=== PATIENT | female | born 1950 | race African-American/Black ===

== ENCOUNTER 2021-01-27 12:30 | Inpatient (IN) | payer OTHER ==
[~2021-01-27] VITALS: Ht 162.6 cm; Wt 76.4 kg
[2021-01-27 14:36] LABS: BASOPHILS % 0.9 % (0.0-2.0); EOSINOPHILS % 1.8 % (0.0-5.0); HEMATOCRIT. 25.7 % (36.0-48.0); HEMOGLOBIN. 8.3 g/dL (12.0-16.0); LYMPHOCYTES % 19.4 % (20.0-50.0); MEAN CORPUSCULAR HEMOGLOBIN 33.7 pg (28.0-32.0); MEAN CORPUSCULAR VOLUME 104.1 fL (81.0-99.0); MEAN PLATELET VOLUME 9.1 fl (7.4-10.4); MONOCYTES % 11.5 % (2.0-8.0); NEUTROPHILS % 66.4 % (40.0-76.0); PLATELET 149 x1000/uL (130-400); RED BLOOD CELL COUNT 2.47 mill/uL (4.2-5.4); RED CELL DISTRIBUTION WIDTH 14.4 % (11.6-14.6)
[2021-01-27 14:41] LABS: CHLORIDE 115 mEq/L (98-107)
[2021-01-27] MEDS ORDERED: ASPIRIN 81MG TABLET PO ONE (15:45)
[2021-01-27] MEDS ORDERED: NITROGLYCERIN OINT 1GM/INCH UDPKT TD ONE (15:45)
[2021-01-27] MEDS: NITROGLYCERIN 0.4MG TABLET SL SL PRN ×2 (16:25→20:12)
[2021-01-27] MEDS ORDERED: HYDRALAZINE HCL 100MG TABLET PO ONE (17:00)
[2021-01-27] MEDS ORDERED: HYDRALAZINE 20MG/ML VIAL IV ONE (20:30)
[2021-01-27] MEDS ORDERED: LABETALOL 5MG/ML SYR 20 MG/4 ML SYRINGE IV ONE (23:15)
[2021-01-28] MEDS ORDERED: ACETAMINOPHEN 325MG TABLET PO PRN ×2 (01:15)
[2021-01-28] MEDS ORDERED: ZOLPIDEM TARTRATE 5MG TABLET PO PRN (01:15)
[2021-01-28] MEDS ORDERED: DIPHENHYDRAMINE 50MG/ML VIAL IV PRN (01:15)
[2021-01-28] MEDS ORDERED: ONDANSETRON HCL 4MG/2ML INJ IV PRN (01:15)
[2021-01-28] MEDS ORDERED: MAGNESIUM/ALUMINUM HYDROXIDE/SIMETHICONE 30ML UDC PO PRN (01:15)
[2021-01-28] MEDS: HYDRALAZINE 20MG/ML VIAL IV PRN ×3 (04:13→17:19)
[2021-01-28] MEDS: CLONIDINE 0.1MG TABLET PO PRN ×3 (04:32→17:18)
[2021-01-28] MEDS ORDERED: MORPHINE SULFATE 2 MG/ML CPJ (NOT FOR IM USE) IV PRN (05:00)
[2021-01-28] MEDS ORDERED: HYDRALAZINE HCL 100MG TABLET PO SCH (06:00)
[2021-01-28] MEDS: SODIUM CHLORIDE 0.9% INJ 3ML FLUSH IVF SCH ×3 (06:26→21:29)
[2021-01-28 06:33] VITALS: BP 204/105
[2021-01-28 06:36] VITALS: BP 204/105
[2021-01-28 08:13] VITALS: BP 225/88
[2021-01-28] MEDS: AMLODIPINE 5MG TABLET PO SCH ×2 (08:33→09:00)
[2021-01-28] MEDS ORDERED: LOSARTAN POTASSIUM 50 MG TABLET PO SCH (11:45)
[2021-01-28 12:00] VITALS: BP 211/93
[2021-01-28] MEDS ORDERED: CLOP75TA33 PO (12:40)
[2021-01-28] MEDS ORDERED: LISI10TA26 PO (12:40)
[2021-01-28] MEDS ORDERED: CLON0.3T PO (12:40)
[2021-01-28] MEDS ORDERED: LATA2.5D14 LEFTEYE (12:40)
[2021-01-28] MEDS ORDERED: CETI10CA11 PO (12:40)
[2021-01-28] MEDS ORDERED: OMEP20CA14 PO (12:40)
[2021-01-28] MEDS ORDERED: NIFE90TA60 PO (12:40)
[2021-01-28] MEDS ORDERED: TERA5CAP4 PO (12:40)
[2021-01-28] MEDS ORDERED: LABE200T9 PO (12:40)
[2021-01-28] MEDS ORDERED: HYDR100T26 PO (12:40)
[2021-01-28] MEDS: FUROSEMIDE 40MG/4ML VIAL IVP SCH (13:20)
[2021-01-28] MEDS: CLONIDINE 0.3MG TABLET PO SCH ×2 (13:21→21:29)
[2021-01-28] MEDS: HYDRALAZINE HCL 100MG TABLET PO SCH ×3 (13:21→21:29)
[2021-01-28] MEDS: METOPROLOL TARTRATE 50MG TABLET PO SCH ×2 (13:21→21:29)
[2021-01-28 13:24] LABS: PROTHROMBIN TIME 10.7 sec (9.6-11.0)
[2021-01-28 16:00] VITALS: BP 231/107
[2021-01-28 20:00] VITALS: BP 210/79
[2021-01-28] MEDS ORDERED: NALOXONE HCL 0.4MG/ML VIAL IV PRN (20:45)
[2021-01-29] VITALS: BP 222/94
[2021-01-29] MEDS: LABETALOL HCL 300MG TABLET PO SCH ×3 (00:08→20:38)
[2021-01-29] MEDS: LISINOPRIL 10MG TABLET PO SCH ×3 (00:09→20:38)
[2021-01-29] MEDS ORDERED: CLONIDINE 0.1MG TABLET PO PRN (01:15)
[2021-01-29 04:00] VITALS: BP 223/87
[2021-01-29] MEDS: HYDRALAZINE 20MG/ML VIAL IV PRN ×3 (04:33→22:30)
[2021-01-29] MEDS: CLONIDINE 0.3MG TABLET PO SCH ×3 (05:56→22:30)
[2021-01-29] MEDS: HYDRALAZINE HCL 100MG TABLET PO SCH ×3 (05:56→22:32)
[2021-01-29] MEDS: SODIUM CHLORIDE 0.9% INJ 3ML FLUSH IVF SCH ×3 (06:23→22:30)
[2021-01-29] MEDS: OMEPRAZOLE 20MG CAPSULE EXTENDED RELEASE PO SCH ×2 (06:23→20:38)
[2021-01-29 07:32] LABS: BASOPHILS % 0.9 % (0.0-2.0); EOSINOPHILS % 2.5 % (0.0-5.0); HEMATOCRIT. 25.9 % (36.0-48.0); HEMOGLOBIN. 8.6 g/dL (12.0-16.0); LYMPHOCYTES % 22.1 % (20.0-50.0); MEAN CORPUSCULAR HEMOGLOBIN 34.6 pg (28.0-32.0); MEAN CORPUSCULAR VOLUME 103.8 fL (81.0-99.0); MEAN PLATELET VOLUME 9.3 fl (7.4-10.4); NEUTROPHILS % 62.5 % (40.0-76.0); PLATELET 184 x1000/uL (130-400); RED BLOOD CELL COUNT 2.49 mill/uL (4.2-5.4); RED CELL DISTRIBUTION WIDTH 14.6 % (11.6-14.6)
[2021-01-29 08:00] VITALS: BP 203/90
[2021-01-29] MEDS: NITROGLYCERIN OINT 1GM/INCH UDPKT TD SCH ×3 (08:57→22:30)
[2021-01-29] MEDS: FUROSEMIDE 40MG/4ML VIAL IVP SCH (08:57)
[2021-01-29] MEDS: CETIRIZINE 10MG TABLET PO SCH (08:58)
[2021-01-29] MEDS ORDERED: NIFEDIPINE XL 90MG TAB PO SCH (09:00)
[2021-01-29] MEDS: NIFEDIPINE XL 90MG TAB PO SCH ×2 (09:28→20:38)
[2021-01-29 12:00] VITALS: BP 171/66
[2021-01-29 16:00] VITALS: BP 140/59
[2021-01-29 20:00] VITALS: BP 156/52
[2021-01-29] MEDS ORDERED: ATORVASTATIN CALCIUM 10MG TABLET PO SCH (21:00)
[2021-01-29] MEDS ORDERED: TERAZOSIN HCL 5MG CAPSULE PO SCH (21:00)
[2021-01-29] MEDS ORDERED: LATANOPROST 0.005% OPHTH DROPS 2.5ML LEFTEYE SCH (21:00)
[2021-01-29] MEDS ORDERED: CLONIDINE 0.2MG TABLET PO PRN (21:25)
[2021-01-30] VITALS: BP 140/56
[2021-01-30 04:00] VITALS: BP 150/55
[2021-01-30] MEDS: OMEPRAZOLE 20MG CAPSULE EXTENDED RELEASE PO SCH (06:20)
[2021-01-30] MEDS: HYDRALAZINE HCL 100MG TABLET PO SCH ×2 (06:20→13:12)
[2021-01-30] MEDS: CLONIDINE 0.3MG TABLET PO SCH ×2 (06:20→13:13)
[2021-01-30] MEDS: NITROGLYCERIN OINT 1GM/INCH UDPKT TD SCH ×3 (06:20→12:31)
[2021-01-30] MEDS: SODIUM CHLORIDE 0.9% INJ 3ML FLUSH IVF SCH ×2 (06:21→13:13)
[2021-01-30 08:00] VITALS: BP 139/64
[2021-01-30] MEDS: CETIRIZINE 10MG TABLET PO SCH (09:07)
[2021-01-30] MEDS: NIFEDIPINE XL 90MG TAB PO SCH (09:08)
[2021-01-30] MEDS: FUROSEMIDE 40MG/4ML VIAL IVP SCH (09:08)
[2021-01-30] MEDS: LABETALOL HCL 300MG TABLET PO SCH (09:08)
[2021-01-30] MEDS: LISINOPRIL 10MG TABLET PO SCH (09:08)
[2021-01-30 12:00] VITALS: BP 164/62
[2021-01-30] MEDS: HYDRALAZINE 20MG/ML VIAL IV PRN (12:21)
[2021-01-30 12:40] VITALS: BP 167/66
== END 2021-01-30 14:10 | disposition home or self-care (01) | DRG 682 ==
LOC: ER 12:30 → EDBEDREQ 13:37 → EDBEDREQTM 15:48 → EDBEDREQ 23:26 → EDBEDREQTM 23:26 → ENRESERV 01-28 03:06 → 6WST 01-28 05:48
PROVIDERS: ADMIT Internal Medicine; ATTEND Internal Medicine
DX: N17.9 Acute kidney failure, unspecified (principal); I50.43 Acute on chronic combined systolic (congestive) and diastolic (congestive) heart failure; I13.0 Hypertensive heart and chronic kidney disease with heart failure and stage 1 through stage 4 chronic kidney disease, or unspecified chronic kidney disease; I16.1 Hypertensive emergency; I48.92 Unspecified atrial flutter; Q61.3 Polycystic kidney, unspecified; I31.3 Pericardial effusion (noninflammatory); I48.0 Paroxysmal atrial fibrillation; N18.9 Chronic kidney disease, unspecified; D64.9 Anemia, unspecified; E78.5 Hyperlipidemia, unspecified; Z96.653 Presence of artificial knee joint, bilateral; Z20.822 Contact with and (suspected) exposure to COVID-19; Z86.73 Personal history of transient ischemic attack (TIA), and cerebral infarction without residual deficits
CPT/HCPCS: 36415; 71045; 80048; 80053; 80061; 83735; 83880; 84484; 85025; 87426; 93005; 93306; 99291; J0360; J1940; J3490

== ENCOUNTER 2021-04-27 23:01 | Inpatient (IN) | payer OTHER ==
[~2021-04-27] VITALS: Ht 162.6 cm; Wt 72.1 kg
[~2021-04-27 23:01] MED LIST: CETI10CA11 PO; CLON0.3T PO; CLOP75TA33 PO; HYDR100T26 PO; LABE200T9 PO; LATA2.5D14 LEFTEYE; LISI10TA26 PO; NIFE90TA60 PO; OMEP20CA14 PO; TERA5CAP4 PO
[2021-04-27] MEDS ORDERED: ASPIRIN 81MG TABLET PO ONE (23:15)
[2021-04-27] MEDS ORDERED: LABETALOL HCL VIAL 20 MG/4 ML VIAL IV ONE (23:15)
[2021-04-27 23:42] LABS: BASOPHILS % 1.4 % (0.0-2.0); HEMATOCRIT. 25.1 % (36.0-48.0); HEMOGLOBIN. 8.5 g/dL (12.0-16.0); MEAN CORPUSCULAR HEMOGLOBIN 33.7 pg (28.0-32.0); MEAN CORPUSCULAR VOLUME 99.6 fL (81.0-99.0); MEAN PLATELET VOLUME 8.6 fl (7.4-10.4); MONOCYTES % 12.1 % (2.0-8.0); NEUTROPHILS % 69.5 % (40.0-76.0); PLATELET 151 x1000/uL (130-400); RED BLOOD CELL COUNT 2.52 mill/uL (4.2-5.4); RED CELL DISTRIBUTION WIDTH 13.5 % (11.6-14.6)
[2021-04-27 23:46] LABS: CHLORIDE 109 mEq/L (98-107)
[2021-04-28] VITALS (61 sets, daily range): BP systolic 111–193; BP diastolic 56–102
[2021-04-28] MEDS ORDERED: FUROSEMIDE 40MG/4ML VIAL IVP NR (00:30)
[2021-04-28] MEDS ORDERED: LABETALOL HCL VIAL 20 MG/4 ML VIAL IV ONE (02:00)
[2021-04-28] MEDS ORDERED: NICARDIPINE 40MG/200ML PREMIX 200 ML IV NR (02:30)
[2021-04-28] MEDS ORDERED: LABETALOL HCL 200MG TABLET PO SCH (07:00)
[2021-04-28] MEDS ORDERED: NICARDIPINE 40MG/200ML PREMIX 200 ML IV PRN (07:30)
[2021-04-28] MEDS: NIFEDIPINE XL 90MG TAB PO SCH (08:34)
[2021-04-28] MEDS: CETIRIZINE 10MG TABLET PO SCH (08:35)
[2021-04-28] MEDS: CLOPIDOGREL 75MG TABLET PO SCH (08:35)
[2021-04-28] MEDS: OMEPRAZOLE 20MG CAPSULE EXTENDED RELEASE PO SCH (08:35)
[2021-04-28] MEDS: LABETALOL HCL 100MG TABLET PO SCH ×3 (08:36→21:51)
[2021-04-28] MEDS ORDERED: LISINOPRIL 10MG TABLET PO SCH (09:00)
[2021-04-28] MEDS: NICARDIPINE 50 MG in SODIUM CHLORIDE 0.9% 250 ML IV PRN (09:14)
[2021-04-28 09:44] LABS: BASOPHILS % 1.2 % (0.0-2.0); EOSINOPHILS % 2.5 % (0.0-5.0); HEMATOCRIT. 28.1 % (36.0-48.0); HEMOGLOBIN. 9.5 g/dL (12.0-16.0); LYMPHOCYTES % 14.1 % (20.0-50.0); MEAN CORPUSCULAR HEMOGLOBIN 33.6 pg (28.0-32.0); MEAN PLATELET VOLUME 8.7 fl (7.4-10.4); MONOCYTES % 9.4 % (2.0-8.0); NEUTROPHILS % 72.8 % (40.0-76.0); PLATELET 169 x1000/uL (130-400); RED BLOOD CELL COUNT 2.84 mill/uL (4.2-5.4); RED CELL DISTRIBUTION WIDTH 13.2 % (11.6-14.6)
[2021-04-28] MEDS ORDERED: CLONIDINE 0.3MG TABLET PO SCH (10:45)
[2021-04-28] MEDS: HYDRALAZINE HCL 100MG TABLET PO SCH ×2 (13:23→21:50)
[2021-04-28] MEDS: CLONIDINE 0.3MG TABLET PO SCH ×2 (13:23→21:50)
[2021-04-28 15:24] LABS: CLARITY URINE CLEAR (CLEAR); COLOR URINE YELLOW (YELLOW); KETONES URINE NEGATIVE (NEGATIVE); LEUKOCYTE ESTERASE URINE NEGATIVE (NEGATIVE); NITRITE URINE NEGATIVE (NEGATIVE); OCCULT BLOOD URINE NEGATIVE (NEGATIVE); PROTEIN URINE 3+ (NEGATIVE); SPECIFIC GRAVITY URINE 1.012 (1.005-1.030); UROBILINOGEN URINE 0.2 E.U./dL (0.2-1.0)
[2021-04-28] MEDS: TERAZOSIN HCL 5MG CAPSULE PO SCH (21:06)
[2021-04-28] MEDS: LATANOPROST 0.005% OPHTH DROPS 2.5ML LEFTEYE SCH (21:06)
[2021-04-29] VITALS (94 sets, daily range): BP systolic 121–178; BP diastolic 47–106
[2021-04-29] MEDS: LABETALOL HCL 100MG TABLET PO SCH ×2 (05:25→14:56)
[2021-04-29] MEDS: HYDRALAZINE HCL 100MG TABLET PO SCH ×3 (05:25→21:18)
[2021-04-29] MEDS: CLONIDINE 0.3MG TABLET PO SCH ×3 (05:25→21:18)
[2021-04-29] MEDS: NICARDIPINE 50 MG in SODIUM CHLORIDE 0.9% 250 ML IV PRN ×2 (05:32→15:19)
[2021-04-29 06:09] LABS: PHOSPHORUS 4.1 mg/dL (2.5-4.9)
[2021-04-29] MEDS: OMEPRAZOLE 20MG CAPSULE EXTENDED RELEASE PO SCH (08:42)
[2021-04-29] MEDS: CETIRIZINE 10MG TABLET PO SCH (09:00)
[2021-04-29] MEDS: NIFEDIPINE XL 90MG TAB PO SCH (09:37)
[2021-04-29] MEDS: CLOPIDOGREL 75MG TABLET PO SCH (09:38)
[2021-04-29] MEDS: ASPIRIN 81MG TABLET PO SCH (09:38)
[2021-04-29 10:23] LABS: BASOPHILS % 0.7 % (0.0-2.0); EOSINOPHILS % 2.4 % (0.0-5.0); HEMOGLOBIN. 8.1 g/dL (12.0-16.0); LYMPHOCYTES % 17.7 % (20.0-50.0); MEAN CORPUSCULAR HEMOGLOBIN 33.4 pg (28.0-32.0); MEAN CORPUSCULAR VOLUME 99.8 fL (81.0-99.0); MEAN PLATELET VOLUME 9.1 fl (7.4-10.4); MONOCYTES % 11.4 % (2.0-8.0); NEUTROPHILS % 67.8 % (40.0-76.0); PLATELET 114 x1000/uL (130-400); RED BLOOD CELL COUNT 2.44 mill/uL (4.2-5.4); RED CELL DISTRIBUTION WIDTH 13.2 % (11.6-14.6)
[2021-04-29 10:26] LABS: HEMATOCRIT. 24.3 % (36.0-48.0)
[2021-04-29] MEDS: LOSARTAN POTASSIUM 100 MG TABLET PO SCH (10:30)
[2021-04-29] MEDS ORDERED: CLON0.3T PO (15:56)
[2021-04-29] MEDS ORDERED: LOSA100T3 PO (15:56)
[2021-04-29] MEDS ORDERED: HYDR100T26 PO (15:56)
[2021-04-29] MEDS ORDERED: NIFE-32 PO (15:56)
[2021-04-29] MEDS: LABETALOL HCL 200MG TABLET PO SCH (21:18)
[2021-04-29] MEDS: TERAZOSIN HCL 5MG CAPSULE PO SCH (21:18)
[2021-04-29] MEDS: LATANOPROST 0.005% OPHTH DROPS 2.5ML LEFTEYE SCH (21:19)
[2021-04-30] VITALS (80 sets, daily range): BP systolic 115–164; BP diastolic 46–101
[2021-04-30] MEDS: NICARDIPINE 50 MG in SODIUM CHLORIDE 0.9% 250 ML IV PRN (04:00)
[2021-04-30] MEDS: LABETALOL HCL 200MG TABLET PO SCH ×4 (05:55→22:09)
[2021-04-30] MEDS: HYDRALAZINE HCL 100MG TABLET PO SCH ×3 (05:55→21:26)
[2021-04-30] MEDS: CLONIDINE 0.3MG TABLET PO SCH ×3 (05:55→21:25)
[2021-04-30 06:17] LABS: BASOPHILS % 0.6 % (0.0-2.0); EOSINOPHILS % 1.6 % (0.0-5.0); HEMATOCRIT. 23.8 % (36.0-48.0); HEMOGLOBIN. 8.2 g/dL (12.0-16.0); LYMPHOCYTES % 11.4 % (20.0-50.0); MEAN CORPUSCULAR HEMOGLOBIN 34.1 pg (28.0-32.0); MEAN CORPUSCULAR VOLUME 98.8 fL (81.0-99.0); MEAN PLATELET VOLUME 9.2 fl (7.4-10.4); MONOCYTES % 11.4 % (2.0-8.0); PLATELET 126 x1000/uL (130-400); RED BLOOD CELL COUNT 2.41 mill/uL (4.2-5.4); RED CELL DISTRIBUTION WIDTH 13.2 % (11.6-14.6)
[2021-04-30 06:20] LABS: PHOSPHORUS 5.1 mg/dL (2.5-4.9)
[2021-04-30] MEDS: OMEPRAZOLE 20MG CAPSULE EXTENDED RELEASE PO SCH (08:46)
[2021-04-30] MEDS: ASPIRIN 81MG TABLET PO SCH (09:00)
[2021-04-30] MEDS ORDERED: NIFEDIPINE XL 60MG TAB PO SCH (09:00)
[2021-04-30] MEDS: CLOPIDOGREL 75MG TABLET PO SCH (09:49)
[2021-04-30] MEDS: LOSARTAN POTASSIUM 100 MG TABLET PO SCH ×2 (09:49→20:14)
[2021-04-30] MEDS: CETIRIZINE 10MG TABLET PO SCH (09:49)
[2021-04-30] MEDS ORDERED: ACETAMINOPHEN 325MG TABLET PO PRN (12:30)
[2021-04-30] MEDS: DILTIAZEM HCL 60MG TABLET PO SCH ×3 (14:39→22:35)
[2021-04-30] MEDS: NITROGLYCERIN OINT 1GM/INCH UDPKT TD SCH ×3 (18:33→23:22)
[2021-04-30] MEDS: LATANOPROST 0.005% OPHTH DROPS 2.5ML LEFTEYE SCH (20:14)
[2021-04-30] MEDS: TERAZOSIN HCL 5MG CAPSULE PO SCH (20:14)
[2021-05-01] VITALS (43 sets, daily range): BP systolic 123–196; BP diastolic 42–80
[2021-05-01] MEDS: LABETALOL HCL 200MG TABLET PO SCH ×2 (05:21→14:00)
[2021-05-01] MEDS: NITROGLYCERIN OINT 1GM/INCH UDPKT TD SCH ×3 (05:21→17:24)
[2021-05-01] MEDS: CLONIDINE 0.3MG TABLET PO SCH ×3 (05:22→20:14)
[2021-05-01] MEDS: DILTIAZEM HCL 60MG TABLET PO SCH ×3 (05:22→20:13)
[2021-05-01] MEDS: HYDRALAZINE HCL 100MG TABLET PO SCH ×3 (05:22→20:13)
[2021-05-01 06:09] LABS: BASOPHILS % 0.6 % (0.0-2.0); CHLORIDE 110 mEq/L (98-107); EOSINOPHILS % 3.8 % (0.0-5.0); HEMATOCRIT. 22.6 % (36.0-48.0); HEMOGLOBIN. 7.1 g/dL (12.0-16.0); MEAN CORPUSCULAR HEMOGLOBIN 31.4 pg (28.0-32.0); MEAN CORPUSCULAR VOLUME 100.1 fL (81.0-99.0); MEAN PLATELET VOLUME 9.3 fl (7.4-10.4); MONOCYTES % 11.8 % (2.0-8.0); NEUTROPHILS % 64.8 % (40.0-76.0); PLATELET 119 x1000/uL (130-400); RED BLOOD CELL COUNT 2.25 mill/uL (4.2-5.4); RED CELL DISTRIBUTION WIDTH 13.1 % (11.6-14.6)
[2021-05-01 06:15] LABS: PHOSPHORUS 5.7 mg/dL (2.5-4.9)
[2021-05-01] MEDS: LOSARTAN POTASSIUM 100 MG TABLET PO SCH ×3 (09:00→20:13)
[2021-05-01] MEDS: ASPIRIN 81MG TABLET PO SCH (09:25)
[2021-05-01] MEDS: CLOPIDOGREL 75MG TABLET PO SCH (09:25)
[2021-05-01] MEDS: CETIRIZINE 10MG TABLET PO SCH (09:26)
[2021-05-01] MEDS: OMEPRAZOLE 20MG CAPSULE EXTENDED RELEASE PO SCH (09:56)
[2021-05-01] MEDS ORDERED: HYDRALAZINE 20MG/ML VIAL IV NR (18:45)
[2021-05-01] MEDS: TERAZOSIN HCL 5MG CAPSULE PO SCH (20:14)
[2021-05-01 20:47] LABS: HEMATOCRIT 29.1 % (36.0-48.0); HEMOGLOBIN 9.8 g/dL (12.0-16.0)
== END 2021-05-01 20:50 | disposition home or self-care (01) | DRG 305 ==
LOC: ER 23:01 → MICUSO 04-28 02:32 → CVICU 04-28 04:09
PROVIDERS: ADMIT Internal Medicine; ATTEND Internal Medicine
DX: I16.1 Hypertensive emergency (principal); N17.9 Acute kidney failure, unspecified; N18.4 Chronic kidney disease, stage 4 (severe); I31.3 Pericardial effusion (noninflammatory); E44.0 Moderate protein-calorie malnutrition; Q61.2 Polycystic kidney, adult type; I50.30 Unspecified diastolic (congestive) heart failure; E87.8 Other disorders of electrolyte and fluid balance, not elsewhere classified; E78.5 Hyperlipidemia, unspecified; D64.9 Anemia, unspecified; I13.0 Hypertensive heart and chronic kidney disease with heart failure and stage 1 through stage 4 chronic kidney disease, or unspecified chronic kidney disease; K76.9 Liver disease, unspecified; R00.1 Bradycardia, unspecified; Z88.2 Allergy status to sulfonamides; Z88.8 Allergy status to other drugs, medicaments and biological substances; Z79.899 Other long term (current) drug therapy; Z86.73 Personal history of transient ischemic attack (TIA), and cerebral infarction without residual deficits; Z68.27 Body mass index [BMI] 27.0-27.9, adult; Z82.49 Family history of ischemic heart disease and other diseases of the circulatory system
CPT/HCPCS: 36415; 71045; 74176; 76700; 80048; 80053; 81003; 83735; 83880; 84100; 84484; 85014; 85018; 85025; 86850; 86900; 86920; 93005; 93306; 99291; J0360; J1940; J3490; J7040; J7050; P9016

== ENCOUNTER 2021-05-04 08:11 | Emergency (ER) | payer OTHER ==
[~2021-05-04] VITALS: Ht 165.1 cm; Wt 70.0 kg
[~2021-05-04 08:11] MED LIST changes: +LOSA100T3 PO; +NIFE-32 PO
[2021-05-04 09:03] LABS: BASOPHILS % 1.2 % (0.0-2.0); EOSINOPHILS % 3.1 % (0.0-5.0); HEMATOCRIT. 28.6 % (36.0-48.0); HEMOGLOBIN. 9.6 g/dL (12.0-16.0); LYMPHOCYTES % 17.1 % (20.0-50.0); MEAN CORPUSCULAR VOLUME 98.2 fL (81.0-99.0); MEAN PLATELET VOLUME 8.9 fl (7.4-10.4); MONOCYTES % 9.5 % (2.0-8.0); NEUTROPHILS % 69.1 % (40.0-76.0); PLATELET 155 x1000/uL (130-400); RED BLOOD CELL COUNT 2.91 mill/uL (4.2-5.4); RED CELL DISTRIBUTION WIDTH 14.6 % (11.6-14.6)
[2021-05-04 09:16] LABS: CHLORIDE 110 mEq/L (98-107)
[2021-05-04] MEDS ORDERED: HYDRALAZINE 20MG/ML VIAL IV ONE ×2 (10:00→11:00)
[2021-05-04 11:53] LABS: CLARITY URINE CLEAR (CLEAR); COLOR URINE YELLOW (YELLOW); KETONES URINE NEGATIVE (NEGATIVE); LEUKOCYTE ESTERASE URINE NEGATIVE (NEGATIVE); NITRITE URINE NEGATIVE (NEGATIVE); OCCULT BLOOD URINE NEGATIVE (NEGATIVE); PH URINE 6.5 (4.5-8.0); PROTEIN URINE 2+ (NEGATIVE); SPECIFIC GRAVITY URINE 1.012 (1.005-1.030); UROBILINOGEN URINE 0.2 E.U./dL (0.2-1.0)
[2021-05-04] MEDS ORDERED: LOSARTAN POTASSIUM 100 MG TABLET PO ONE (14:00)
[2021-05-04] MEDS ORDERED: NIFEDIPINE XL 90MG TAB PO ONE (14:00)
[2021-05-04] MEDS ORDERED: NITROGLYCERIN OINT 1GM/INCH UDPKT TD NR (15:30)
[2021-05-04] MEDS ORDERED: LABETALOL HCL VIAL 20 MG/4 ML VIAL IV ONE (18:00)
[2021-05-04] MEDS ORDERED: LABETALOL 5MG/ML SYR 20 MG/4 ML SYRINGE IV NR (18:15)
[2021-05-04 20:00] VITALS: BP 228/100
== END 2021-05-04 20:30 | disposition short-term general hospital (02) ==
LOC: ER 08:35 → CANBEDREQ 21:37
DX: I11.9 Hypertensive heart disease without heart failure (principal); Z88.2 Allergy status to sulfonamides; Z88.8 Allergy status to other drugs, medicaments and biological substances; Z86.73 Personal history of transient ischemic attack (TIA), and cerebral infarction without residual deficits
CPT/HCPCS: 36415; 71045; 74176; 80053; 81003; 85025; 87426; 93005; 96374; 96375; 96376; 99285; J0360; J3490